=== PATIENT | female | born 1950 | race Caucasian/White ===

== ENCOUNTER 2023-05-22 06:37 | Outpatient (CLI) | payer OTHER, MEDICARE, SELFPAY | END 2023-05-22 06:38 | disposition home or self-care (01) | PROVIDERS: PCP Internal Medicine; Visit Provider Family Medicine | DX: M54.16 Radiculopathy, lumbar region (principal); M48.062 Spinal stenosis, lumbar region with neurogenic claudication | CPT/HCPCS: 62323; J0702; Q9966 ==

== ENCOUNTER 2024-09-17 12:10 | Outpatient (RCR) | payer MEDICARE, BC, SELFPAY ==
--- NOTE | 2024-09-18 13:25 | PT.OPEX ---
PT [place] Outpatient Eval PT [facility] Outpatient Eval Start: 09/18/24 13:04 Freq: Status: Active Protocol: Document 09/18/24 13:05 MRS (Rec: 09/18/24 13:20 MRS No Response) E-signed By Dede Granados DPT Physical Therapy Outpatient Evaluation Insurance Information Recert Due Date 12/18/24 Insurance Name [facility] Medical Diagnosis R TKA on 09/25/24 Treating Diagnosis Pain in Knee Right M25.561 Stiffness in Knee Right M25. 661 Muscle Weakness M62.81 Imaging Report Information XR R knee= [id number] medial and patellofemoral compartment joint space narrowing, subchondral sclerosis, and osteophytic spurring Referring MD Ulisses Baker MD Subjective Preferred Name Ninoska Subjective Ninoska presents for a pre-op evaluation for R TKA scheduled for 09/25/24. Ninoska plans to have SDS and go home with . 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 Pt goals: less pain in the knee and walk better Pain Comments current 0/10; at worst 10/10 Date of Next Physician Visit 09/29/24 Date of Surgery (If applicable) 09/25/24 Current Work Status [employer] Occupation seamstress Precautions Weight Bearing Status Full Weight Bearing Therapy Limitations/Systems Review Not Limited Objective Range of Motion LE ROM (R/L): -Knee flex: 127/135 -Knee ext: 2/-1 Strength -Knee Flex: R 5/5; L 5/5 -Knee Ext: R 5/5; L 5/5 -Hip Abd: R 5/5; L 5/5 -Hip Add: R 5/5; L 5/5 -Hip Flex: R 5/5; L 5/5 Ankle Strength: -DF: R 5/5; L 5/5 Assessment Assessment/Impression Pt presents with signs and symptoms consistent with osteoarthritis of right knee with plans to undergo R TKA on 09/25/24. Pt plans to have SDS and d/c to home with . Contributing factors include but are not limited to weakness, limited ROM compared to L knee, and pain. Pt would benefit from skilled PT interventions to facilitate return to PLOF and improve functional strength, mobility, and range of motion while decreasing pain. Primary Functional Limitations pain, flexibility, weakness Plan of Care Rehabilitation Potential Excellent Physical Therapy Goals pre surgery/today 1. Within this session: Pt will verbalize understanding of pre-op/post-op safety, mobility and exercises with home program issued and pt returning for ongoing therapy after TKA replacement. After surgery within 12 weeks: 1. Pt will have knee AROM 0- 120 degrees for transfers, ADLs, and stairs independence. 2. Pt will amb 20 min with se cane or no device as indicated , safely and independently for community and household ambulation. 3. 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 4. Pt will ascend/descend 13 stairs with railing independently for community mobility. Coordination/Communication With Referral Source Treatment Plan/Direct Interventions Gait Training,Manual Therapy, Neuromuscular Re-ed, Therapeutic Activities, Therapeutic Exercises Patient Will Be Discharged From Therapy Completion of LTG(s),Skills Plateau,Independent w/HEP, Independently Progressing Evaluation Billing Untimed Code Treatment Minutes 35 PT Eval No Charge No Complexity Low Certification Information Initial Certification Date 09/17/24 Ending Certification Date 12/18/24 Provider Signature Required Yes Provider Signature Shows Agreement With POC & Medical Necessity Physician NPI Number Write NPI# Here Physician Comment/Change : Physician Signature & Date Requested Please Sign/Date Here
== END 2025-01-15 23:59 | disposition home or self-care (01) ==
PROVIDERS: PCP Internal Medicine; Visit Provider Orthopaedic Surgery
DX: Z48.89 Encounter for other specified surgical aftercare (principal); M17.11 Unilateral primary osteoarthritis, right knee; Z96.651 Presence of right artificial knee joint; M25.561 Pain in right knee; Z51.89 Encounter for other specified aftercare
CPT/HCPCS: 97110; 97161; 97530

== ENCOUNTER 2024-09-25 05:57 | Day surgery (SDC) | payer MEDICARE, BC, SELFPAY ==
--- NOTE | 2024-09-17 13:43 | PT.OPEX ---
PT [place] Outpatient Eval PT [facility] Outpatient Eval Start: 09/17/24 09:40 Freq: Status: Active Protocol: Document 09/17/24 09:40 MRS (Rec: 09/17/24 13:36 MRS No Response) E-signed By Dede Granados DPT Physical Therapy Outpatient Evaluation Insurance Information Recert Due Date 12/18/24 Insurance Name [facility] Treating Diagnosis Pain in Knee Right M25.561 Stiffness in Knee Right M25. 661 Muscle Weakness M62.81 Imaging Report Information R knee XR= [id number] medial and patellofemoral compartment joint space narrowing, subchondral sclerosis, and osteophytic spurring Referring MD Ulisses Baker MD Subjective Preferred Name Ninoska Subjective Ninoska presents for pre-op evaluation for R TKA scheduled on 09/25/24. Ninoska plans to have SDS and go home with . 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 -Knee Flx:?127/135 -Knee Ext:?2/-1 Strength LE Strength (R/L):? -Knee Ext: R: 5/5, L: 5/5? -Knee Flex: R: 5/5, L: 5/5? -Hip Abd: R: 5/5, L: 5/5? -Hip Add: R: 5/5, L: 5/5? -Hip Flx: R: 5/5, L: 5/5? Ankle Strength (R/L):? -DF: R: 5/5, L: 5/5? Assessment Assessment/Impression Pt presents with signs and symptoms consistent with osteoarthritis of right knee with plans to under R TKA, DOS 09/25/24. Contributing factors include but are not limited to ; weakness, limited ROM compared to left knee, and pain. Pt would benefit from skilled PT interventions to facilitate return to PLOF and improve functional strength mobility, and range of motion while decreasing pain. Primary Functional Limitations pain, flexibility, weakness Plan of Care Rehabilitation Potential Excellent Physical Therapy Goals pre surgery/today 1. Within this session: Pt will verbalize understanding of pre-op/post-op safety, mobility and exercises with home program issued and pt returning for ongoing therapy after TKA replacement. Post surgery within 12 weeks: 1. Pt will have knee AROM 0- 120 degrees for transfers, ADLs, and stairs independence. 2. Pt will amb 20 min with se cane or no device as indicated , safely and independently for community and household ambulation. 3. Pt will be independent in home ex program for fdc pain management and to promote independence and to decrease fall risk. 4. Pt will ascend/descend 13 stairs with railing independently for community mobility. Coordination/Communication With Referral Source Treatment Plan/Direct Interventions Gait Training,Manual Therapy, Neuromuscular Re-ed, Therapeutic Activities, Therapeutic Exercises Patient Will Be Discharged From Therapy Completion of LTG(s),Skills Plateau,Independent w/HEP, Independently Progressing Evaluation Billing Untimed Code Treatment Minutes 35 PT Eval No Charge No Complexity Low Certification Information Initial Certification Date 09/17/24 Ending Certification Date 12/18/24 Provider Signature Required Yes Provider Signature Shows Agreement With POC & Medical Necessity Physician NPI Number Write NPI# Here Physician Comment/Change : Physician Signature & Date Requested Please Sign/Date Here
[2024-09-25] VITALS (22 sets, daily range): BP systolic 105–161; BP diastolic 68–105; PULSE 56–85; RESP 10–16; TEMP 35.9–36.3; O2SAT 92–98; BMI 37.5
[2024-09-25] MEDS: OXYCODONE (CR) 10 MG TAB.ER.12H PO (06:30)
[2024-09-25] MEDS: ACETAMINOPHEN 500 MG TABLET 1000 MG PO ×2 (06:30→12:30)
[2024-09-25] MEDS: CELECOXIB 200 MG CAPSULE PO (06:30)
[2024-09-25] MEDS: SODIUM CHLORIDE 0.9 % (FLUSH) 10 ML SYRINGE IVF ×2 (06:40→10:10)
[2024-09-25] MEDS: LACTATED RINGERS 1000 ML 1,000 ML 100 ML IV ×2 (06:40→09:35)
[2024-09-25] MEDS: MIDAZOLAM HCL 1 MG/ML inj IVP (06:48)
[2024-09-25] MEDS: fentaNYL 100 MCG/2 ML inj IVP (06:48)
--- NOTE | 2024-09-25 07:10 | SUR.PREOP ---
TIME?OUT:?0648 PT/RN/SOFTWARE TRAINER?VERIFICATION?OF?SURGICAL?SITE,?PROCEDURE,?AND?CONSENT OBTAINED?PRIOR?TO?INVASIVE?PROCEDURE.
[2024-09-25] MEDS: CEFAZOLIN 2 GM INJ IVP (07:37)
[2024-09-25] MEDS: TRANEXAMIC ACID 100 MG/ML INJ 1000 MG IV (07:41)
--- NOTE | 2024-09-25 07:56 | SUR.OPER ---
PATIENT QUESTIONS ANSWERED SATISFACTORILY PREOPERATIVELY.? PATIENT BROUGHT TO OR #2 PER CART AFTER ADMINISTRATION OF A BLOCK.? Patient positioned supine on OR #2 bed.? The perioperative?team supported arms bilaterally on arm boards.? Final approval of positioning by surgeon.? QUARTER-SIZED OPEN DECUBITUS ULCER ON THE PT. COCCYX
--- NOTE | 2024-09-25 08:56 | CRLHL7_ITS ---
For Patients: As a result of the Cures Act, medical imaging exams and procedure reports are released immediately into your electronic medical record. You may view this report before your referring provider. If you have questions, please contact your health care provider. Indication: Postop TKA Technique: Right knee 2 views Comparison: None Findings: Bones: Total knee arthroplasty. Hardware is intact. No acute fracture. Superior patellar enthesophyte. Joint spaces: Periarticular gas. Soft tissues: Soft tissue swelling surrounding the knee. Vascular calcifications. Impression: Post total knee arthroplasty. No acute fracture. Dictated by Stephanie Nobles MD @ 09/25/2024 11:06:27 AM (Electronically Signed)
--- NOTE | 2024-09-25 09:01 | PM.ORPRC ---
Procedure Note Date of procedure: 09/25/24 Procedure: PREOPERATIVE DIAGNOSIS: Left knee osteoarthritis POSTOPERATIVE DIAGNOSIS: Left knee osteoarthritis NAME OF OPERATION: Left total knee arthroplasty SURGEON: Ulisses Baker MD DIRECTOR OF PHYSICAL THERAPY: CHER Crawley ANESTHESIA: Spinal ESTIMATED BLOOD LOSS: 0 mL COMPLICATIONS: None SPECIMENS: None DRAINS: None PREOPERATIVE ANTIBIOTICS: Ancef 2 grams, antibiotic impregnated cement IMPLANTS: 1. J&J Attune # 6 narrow posterior stabilized femur 2. Revision CRS #4 fixed-bearing tibia, 14 mm x 50 mm cemented stem 3. #6 posterior stabilized, 5 mm fixed-bearing polyethylene 4. 38 patella INDICATIONS: The patient is a 74-year-old with a longstanding history of severe, unrelenting left knee pain secondary to end-stage (grade IV) left knee osteoarthritis. Despite appropriate nonoperative management, including activity modification, anti-inflammatories, [id number]-sptkmhw pain medication, bracing, physical therapy, and injections they continue to have pain and disability. Operative intervention was offered. The risks, benefits and expected outcomes were discussed in detail. These included but were not limited to: Infection, bleeding, injury to blood vessel or nerve, venous thromboembolism. All questions were answered to their satisfaction. Use of an metallurgical laboratory assistant was necessary throughout the case for patient positioning and safety, soft tissue retraction, and closure. A modifier 22 should be added to this case. With a BMI of 37 a tibial stem was used to decrease the risk of aseptic loosening. This added cost to complete the case. PROCEDURE: Spinal anesthesia was administered. The patient was placed supine on the operating table. The metallurgical laboratory assistant made sure the patient was positioned appropriately. The lower extremity was prepped and draped in the usual sterile fashion. The limb was exsanguinated with the Edwin bandage. The pneumatic tourniquet was inflated to 300 mmHg. A standard anterior incision was made with the knee in flexion. Subcutaneous dissection was sharply taken through fascial layer #1. Full-thickness medial and lateral flaps were elevated. The metallurgical laboratory assistant retracted the soft tissues and protected them throughout the case. A standard subvastus approach was made. The patella was subluxed. The infrapatellar fat pad was debrided. The menisci and cruciate ligaments were sharply d?brided. Marginal osteophytes were d?brided with the rongeur. The drill was used to penetrate the femoral canal. The canal was aspirated and irrigated with pulse lavage. The intramedullary femoral guide was placed for a 5-degree valgus cut, removing 10 mm off the distal femur. The saw was used to make the cut. Whitesides line and the trans epicondylar axis were marked. The femoral sizing guide was pinned onto the distal femur. Three degrees of external rotation nicely parallels the transepicondylar axis. Pins were placed for posterior referencing. The four-in-one cutting guide was pinned onto the distal femur. The anterior, posterior, and chamfer cuts were made. The metallurgical laboratory assistant protected the collateral ligaments. The box cutting guide was pinned. The box cuts were made. The boxed trial was placed and was an excellent fit. Drill holes for the lugs were made. Attention was then turned to the proximal tibia. The extramedullary tibial guide was placed for a neutral varus/valgus cut with 5 degrees of posterior slope, removing 0 mm based off the medial tibial surface. The metallurgical laboratory assistant protected the collateral ligaments and the neurovascular bundle. The saw was used to make the cut. Trial components were placed. The knee was nicely balanced in both flexion and extension. The trial components were removed. The tray was placed in appropriate rotation, parallel to our tibial cutting pins. It was pinned by the metallurgical laboratory assistant and the drill x2 was used. The stemmed tibial trial was placed. The punch was used. The tray was removed. The punch was used again. Attention was then turned to the patella. [place] patellar thickness was 19 mm. The lobster claw resection guide was used with the 7.5 mm adriana with a saw blade used as an extra adriana. The saw was used to make the cut. Drill holes were made by the metallurgical laboratory assistant. The trial was placed and was an excellent fit. Cancellous surfaces were irrigated with pulse lavage and thoroughly dried by the metallurgical laboratory assistant. We cemented the tibial component, then the femoral component. We impacted the 5 mm polyethylene onto the tibial tray. The knee was brought into full extension. We then cemented the patellar component. Excessive cement was removed. The cement was allowed to harden. The knee was taken through a range of motion and was found to be nicely balanced in both flexion and extension. The patella tracks centrally. The metallurgical laboratory assistant did a three minute dilute Betadine solution soak. The metallurgical laboratory assistant irrigated the wound with 3 liters of normal saline via pulse lavage. The metallurgical laboratory assistant reapproximated the extensor mechanism with #1 Vicryl in an interrupted [id number]-vo-nyzgx fashion. The metallurgical laboratory assistant then ran the extensor mechanism with a #1 PDO Stratafix. The metallurgical laboratory assistant closed the subcutaneous tissues with a 3-0 Stratafix and the skin with a running 3-0 Stratafix in a subcuticular fashion. Glue was used to seal the skin. The metallurgical laboratory assistant placed a dry dressing. Sponge and needle counts were correct x2. The patient tolerated the procedure well. There were no apparent complications. They were carefully transferred to the hospital bed and taken to the postanesthesia care unit in satisfactory condition. PLAN: The patient will be mobilized with physical therapy. Aspirin will be used for DVT prophylaxis. They will be discharged to home once medically appropriate.
--- NOTE | 2024-09-25 09:50 | W.PM.NB ---
Nerve Block Nerve Block Time Seen by Provider: 07:10 Date Seen: 09/25/24 Type of block requested by surgeon for post-operative analgesia: adductor canal Side: right Time out performed: Yes Verification of patient name: Yes Verification of date of : Yes Site marking: site marked Name of person performing procedure: Maxwell Espinoza Continuous monitoring Was continuous monitoring of O2 sat, B/P, quality assurance monitor body, recorded every 15 minutes?: Yes Procedure Checklist: sterile prep, needles and gloves Ultrasound guided. Images saved: Yes Medications given in 5ml increments after negative aspiration: Ropivicaine %: 0.5 mL: 20 Needle gauge: 20 Patient tolerated procedure well: Yes Additional comments: injected in 5ml increments after negative aspiration Block Charges Block Charge (with Pro Fee): Femoral Nerve Use of Ultrasound Machine for Block: Yes- US Guidance/pain block
--- NOTE | 2024-09-25 09:52 | P.NB_ITS ---
Nerve Block Nerve Block Time Seen by Provider: 07:10 Date Seen: 09/25/24 Type of block requested by surgeon for post-operative analgesia: geniculars Side: right Time out performed: Yes Verification of patient name: Yes Verification of date of : Yes Site marking: site marked Name of person performing procedure: Maxwell Espinoza Continuous monitoring Was continuous monitoring of O2 sat, B/P, monitoring specialist, recorded every 15 minutes?: Yes Procedure Checklist: sterile prep, needles and gloves Ultrasound guided. Images saved: No Medications given in 5ml increments after negative aspiration: Ropivicaine %: 0.5 mL: 12 Needle gauge: 25 Patient tolerated procedure well: Yes Additional comments: Injected in 4ml increments after negative aspiration Block Charges Block Charge (with Pro Fee): Genicular Nerve Block Use of Ultrasound Machine for Block: No
--- NOTE | 2024-09-25 11:11 | P.ANES_ITS ---
Anesthesia Charges Start Date/Time Anesthesia Start Date: 09/25/24 Anesthesia Start Time: 07:18 Stop Date/Time Anesthesia Stop Date: 09/25/24 Anesthesia Stop Time: 09:36 Summary Extremes of Age - Over 70 or under 1: ENVIRONMENTAL HEALTH AND SAFETY MANAGER Coding CPT Codes CPT Codes: ANESTH KNEE ARTHROPLASTY - 81910 ([id number]) P3 - PATIENT W/SEVERE SYS DISEASE, QZ - ENVIRONMENTAL HEALTH AND SAFETY MANAGER SVC W/O DIRECTOR EQUIPMENT BY Additional Codes: Summary - Extremes of Age - Over 70 or under 1: ENVIRONMENTAL HEALTH AND SAFETY MANAGER ([id number])
--- NOTE | 2024-09-25 11:11 | W.ANESCHARGE ---
Anesthesia Charges Start Date/Time Anesthesia Start Date: 09/25/24 Anesthesia Start Time: 07:18 Stop Date/Time Anesthesia Stop Date: 09/25/24 Anesthesia Stop Time: 09:36 Summary Extremes of Age - Over 70 or under 1: METALSMITH Coding CPT Codes CPT Codes: ANESTH KNEE ARTHROPLASTY - 52678 ([id number]) P3 - PATIENT W/SEVERE SYS DISEASE, QZ - METALSMITH SVC W/O CLASS A LINEMAN BY Additional Codes: Summary - Extremes of Age - Over 70 or under 1: METALSMITH ([id number])
== END 2024-09-25 14:10 | disposition home or self-care (01) ==
LOC: OR 05:59
PROVIDERS: PCP Internal Medicine; Visit Provider Orthopaedic Surgery
PROC: (CPT 27447; principal; 2024-09-25 07:30)
DX: M17.12 Unilateral primary osteoarthritis, left knee (principal); G89.18 Other acute postprocedural pain; I10 Essential (primary) hypertension; E78.00 Pure hypercholesterolemia, unspecified
CPT/HCPCS: 27447; 01402; 64447; 64454; 73560; 76942; 97110; 97116; 97161; 99100; A9270; C1776; J0690; J1100; J2250; J2371; J2405; J2704; J2795; J3010; J7120